=== PATIENT | female | born 1995 | race African-American/Black ===

== ENCOUNTER 2021-08-25 16:51 | Emergency (ER) | payer BC ==
[~2021-08-25] VITALS: Ht 165.1 cm; Wt 77.1 kg
[2021-08-25 16:56] VITALS: BP 102/61
== END 2021-08-25 20:37 | disposition left against medical advice (07) ==
LOC: ER 16:51
DX: O20.0 Threatened abortion (principal); Z3A.01 Less than 8 weeks gestation of pregnancy; Z53.21 Procedure and treatment not carried out due to patient leaving prior to being seen by health care provider